=== PATIENT | male | born 1955 | race Caucasian/White ===

== ENCOUNTER 2019-03-25 08:37 | Outpatient (REF) | payer BC, SELFPAY ==
[2019-03-25 13:47] LABS: BUN 25 mg/dL (7-18); CREATININE 1.04 mg/dL (0.70-1.30); Calcium 8.9 mg/dL (8.5-10.1); Calculated LDL 94 mg/dL; Chloride 108 mmol/L (98-107); Cholesterol 154 mg/dL (50-200); Glucose 100 mg/dL (70-100); HDL Cholesterol 32 mg/dL (40-60); Potassium 3.9 mmol/L (3.5-5.1); Sodium 143 mmol/L (136-145); Triglyceride 140 mg/dL (30-150)
[2019-03-25 13:52] LABS: Anion Gap 10.7 mmol/L (3-11); CO2 24.3 mmol/L (21.0-32.0)
[2019-03-25 14:40] LABS: Hemoglobin A1C 5.7 % (4.5-6.2)
== END 2019-03-25 08:57 ==
LOC: NCHCN 08:37
PROVIDERS: PCP Family Medicine; Visit Provider Family Medicine
DX: Z00.00 Encounter for general adult medical examination without abnormal findings (principal); E66.3 Overweight; Z13.1 Encounter for screening for diabetes mellitus; Z13.220 Encounter for screening for lipoid disorders
CPT/HCPCS: 80048; 80061; 83036

== ENCOUNTER 2020-08-21 06:13 | Day surgery (SDC) | payer BC, SELFPAY ==
[2020-08-21 06:22] VITALS: BP 131/83; PULSE 98; RESP 16; TEMP 36; O2SAT 98
[2020-08-21] MEDS: Lactated Ringers 1,000 ML 80 ML IV (06:48)
--- NOTE | 2020-08-21 07:36 | BOWEL_PTH ---
PATIENT: Eric Cowan LOC: [facility] U#:[id number] AGE/SX: 64/M ROOM: RE08/21/[address]: Virginia Hardy : 1955 BED: DIS: 08/21/2020 SPEC #: [id number] RECD: 08/21/20 12:24 STATUS: MAGALYS REQ #: [id number] BALDEV: 08/21/20 07:[address]: Virginia Hardy DEPT: Surgical Specimen RECD BY: Lucina Horner ENTERED: 08/21/20 12:25 SP TYPE: Bowel OTHR DR: Arlet Pitt Tissues: 1 - BIOPSY BOWEL 2 - BIOPSY BOWEL Procedures: GROSS AND MICRO LEVEL 4 Comments: [id number]
--- NOTE | 2020-08-21 07:57 | W.COLOREPORT ---
Date of service: 08/21/20 Time of Service: 07:57 Colonoscopy Report Date of procedure: 08/21/20 Pre-op diagnosis general: crcscreen Post-op diagnosis procedure note: other Procedure: polypcetomy x2 w/ cold forcept Surgeon: Virginia Hardy Anesthesia proc note operative: GETA Estimated blood loss (mL): 1 Pathology: other Complications: None Disposition: PACU Prep: Miralax/Dulcolax Retraction Time: 15 Procedure Description: After informed consent was obtained the patient was taken to the procedure room and placed in a left decubitous position. Monitors were applied and a time out was done. The patients name, date of , procedure, allergies to medications and metal in their body was reviewed. The patient was then sedated. Once sedated and comfortable a rectal exam was done. External exam was normal. Internal exam revealed a normal sphincter tone and no palpable masses. The scope was then introduced and retrofelexed. No internal hemorrhoids were identified. The scope was then advanced to the cecum w/out difficulty. The TI and appendiceal orifice were identified. The prep was good. The scope was then slowly retracted over 15 minutes back into the rectum. X2 polyps are removed. One at 20 cm that is a flat 5 mm polyp. Is removed with 3 bites of a cold forcep. The second is a 2 mm polyp at 80 cm it is flat and removed with a cold biting forcep. The scope was removed and the patient was woken up and taken back to Same day surgery in stable condition. The patient tolerated the procedure well and there were no immediate complications. Follow up: The patient should follow up in 5-7 yrs , path pd years unless they develop changes in bowel habits or other new gastrointestinal complaints.
--- NOTE | 2020-08-21 08:18 | PDOC.DSDIS_ITS ---
Discharge Plan Disposition Patient Disposition: HOME Condition: Good Discharge Details Reason For Visit: colon scope Attending Provider: Virginia Hardy Primary Care Provider: Arlet Pitt Discharge Instructions Additional Instructions: Findings:x2 small polyps Follow up: We will send a letter in 3 to 4 weeks with the results of the polyp type and when to repeat the colonoscopy. Please call if you develop: fevers >101.5 Nausea or Vomiting Abdominal pain that is not transient DAY SURGERY UNIT POST COLONOSCOPY INSTRUCTIONS 1. Because there will be medication in your system for the next 24 hours, you may feel a little sleepy. Your coordination will be affected. Therefore: a. Do not drive or operate dangerous equipment for 24 hours. b. Do not drink alcohol beverages for 24 hours (not even beer). c. Plan to go home and rest for the day. 2. Generally there are no restrictions on your activity after a day or so has gone by, but you may feel a bit fatigued for a few days. 3 After you arrive home you may have a light meal and return to a normal diet as you can tolerate it without feeling sick to your stomach. 4. After surgery, you may feel pain or discomfort. This should be only transi ent, but if it persists please contact your doctor. 5. If there are any questions regarding the findings of your procedure, please feel free to contact your doctor. 6. If you are unable to contact your doctor with a problem, contact the hospital at [phone]. 7. Continue all your regular medications unless directed otherwise. I understand the above instructions and have no questions. Signature of Patient or Responsible Adult Escort Date/Time Name of Responsible Adult Escort Signature of Nurse Date/Time Activity:: No strenuous activity or lifting over 20 pounds x 24 hours Diet:: Small light meals x24 hours Discharge Orders Discharge Orders: Discharge Order (Routine); Ordered 08/20/20 Ordered By: Virginia Hardy DS: Diagnosis Discharge Diagnosis (1) Colon polyp: Status: Acute
[2020-08-21 08:34] VITALS: BP 116/80; PULSE 60; RESP 16; TEMP 36.4; O2SAT 98
== END 2020-08-21 06:14 | disposition home or self-care (01) ==
PROVIDERS: PCP Family Medicine; Visit Provider Surgery
PROC: 0DJD8ZZ Inspection of Lower Intestinal Tract, Via Natural or Artificial Opening Endoscopic (ICD-10-PCS; CPT 45378; principal; 2020-08-21 07:30)
DX: Z12.11 Encounter for screening for malignant neoplasm of colon (principal); K62.1 Rectal polyp; E66.9 Obesity, unspecified; R73.03 Prediabetes
CPT/HCPCS: 45380; 88305

== ENCOUNTER 2021-03-26 08:27 | Outpatient (REF) | payer BC, SELFPAY ==
[2021-03-26 15:03] LABS: Glucose 105 mg/dL (74-106)
[2021-03-26 15:19] LABS: Hemoglobin A1C 5.7 % (<5.7)
== END 2021-03-26 08:28 | disposition home or self-care (01) ==
LOC: NCHCN 08:27
PROVIDERS: PCP Family Medicine; Visit Provider Family Medicine
DX: R73.03 Prediabetes (principal)
CPT/HCPCS: 82947; 83036

== ENCOUNTER 2022-07-20 10:01 | Outpatient (REF) | payer MEDICARE, BC, SELFPAY ==
[2022-07-20 15:39] LABS: Calculated LDL 133 mg/dL (<100); Cholesterol 193 mg/dL (<200); Glucose 104 mg/dL (74-106); HDL Cholesterol 42 mg/dL (40-60); Triglyceride 90 mg/dL (<150)
[2022-07-20 15:45] LABS: Hemoglobin A1C 5.4 % (<5.7)
[2022-07-21 10:13] LABS: Hepatitis C Ab w Rflx HCV PCR Negative (Negative)
[2022-07-21 10:21] LABS: HIV-1/2 Ag & Ab Screen Negative (Negative)
== END 2022-07-20 10:02 | disposition home or self-care (01) ==
LOC: NCHCN 10:01
PROVIDERS: PCP Family Medicine; Visit Provider Family Medicine
DX: Z00.00 Encounter for general adult medical examination without abnormal findings (principal); G25.0 Essential tremor; R73.03 Prediabetes; E66.8 Other obesity; Z11.4 Encounter for screening for human immunodeficiency virus [HIV]; Z11.59 Encounter for screening for other viral diseases
CPT/HCPCS: 80061; 82947; 86803; 87389; 83036

== ENCOUNTER 2024-08-07 10:23 | Outpatient (REF) | payer MEDICARE, BC, SELFPAY ==
[2024-08-07 19:49] LABS: ALT 32 U/L (16-63); AST 17 U/L (15-37); Albumin 3.8 g/dL (3.4-5.0); Alkaline Phosphatase 91 U/L (46-116); Anion Gap 9.6 mmol/L (3-11); BUN 11 mg/dL (7-18); Bilirubin, Total 0.39 mg/dL (0.2-1.0); CO2 24.4 mmol/L (21.0-32.0); Calcium 8.2 mg/dL (8.5-10.1); Calculated LDL 72 mg/dL (<100); Chloride 108 mmol/L (98-107); Cholesterol 119 mg/dL (<200); Estimated GFR 82.49 (mL/min/1.73m2); Glucose 100 mg/dL (74-106); HDL Cholesterol 32 mg/dL (40-60); Potassium 3.4 mmol/L (3.5-5.1); Sodium 142 mmol/L (136-145); Total Protein 6.9 g/dL (6.4-8.2); Triglyceride 76 mg/dL (<150)
[2024-08-07 20:46] LABS: Hemoglobin A1C 5.6 % (<5.7)
== END 2024-08-07 10:24 | disposition home or self-care (01) ==
LOC: NCHCN 10:23
PROVIDERS: PCP Family Medicine; Visit Provider Family Medicine
DX: E78.5 Hyperlipidemia, unspecified (principal); R73.03 Prediabetes
CPT/HCPCS: 80053; 80061; 83036